=== PATIENT | female | born 1970 | race Caucasian/White ===

== ENCOUNTER → 2016-08-01 | Day surgery (SDC) | payer OTHER ==
[~2016-08-01] VITALS: Ht 165.1 cm; Wt 87.8 kg
== END | disposition home or self-care (01) ==
LOC: FAS 10:15
DX: L72.0 Epidermal cyst (principal); Z80.9 Family history of malignant neoplasm, unspecified; Z87.891 Personal history of nicotine dependence
CPT/HCPCS: 84703; 88304; 93005; J0690; J2704; J3010